=== PATIENT | male | born 1960 | race Caucasian/White ===

== ENCOUNTER 2022-05-01 18:20 | Inpatient (IN) | payer BC ==
[~2022-05-01 18:20] MED LIST: Iopamidol-370 76% 500 ML 1 ML ONE
[2022-05-01] MEDS ORDERED: Dexamethasone 4 mg/ml Vial ONE (18:57)
[2022-05-01] MEDS ORDERED: Magnesium 2 GM/50 ML BAG (IN WATER) ONE (18:57)
[2022-05-01 19:22] LABS: #Eosinphils 0.1 thou/uL (0.0-0.7); #Lymphocytes 1.1 thou/uL (1.20-3.40); #Monocytes 0.5 thou/uL (0.11-0.59); #Neutrophils 2.4 thou/uL (1.40-6.50); %Basophils 0.6 % (0.0-1.0); %Eosinophils 1.3 % (0.0-10.0); %Lymphocytes 27.2 % (21.0-51.0); %Monocytes 11.2 % (0.0-10.0); %Neutrophils 59.7 % (42.0-75.0); Hemoglobin 14.3 g/dL (14.0-18.0); Mean Corpuscular HGB CONC 35.1 g/dL (32.0-36.0); Mean Corpuscular Volume 94.3 fl (78.0-98.0); Mean Platelet Volume 7.1 fL (7.4-10.4); Platelet Count 212 thou/uL (130-400); RBC Distribution Width 11.2 % (11.5-14.5); Red Blood Cell (RBC) Count 4.34 mill/uL (4.70-6.10)
[2022-05-01 19:37] LABS: ALT (SGPT) 39 U/L (8-55); AST (SGOT) 33 U/L (5-34); Albumin 4.7 g/dL (3.5-5.0); Alkaline Phosphatase 41 U/L (40-110); Anion Gap 14 mmol/L (10-20); BUN (Urea Nitrogen) 18 mg/dL (8.4-25.7); Bilirubin, Total 0.9 mg/dL (0.2-1.2); CK (CPK) 97 U/L (30-200); Calc. Creatinine Clearance 0 mL/min (70-130); Calcium 9.1 mg/dL (7.8-10.44); Carbon Dioxide 25 mmol/L (22-29); Chloride 103 mmol/L (98-107); Estimated GFR 103; Glucose 107 mg/dL (70-105); Lipase 20 U/L (8-78); Potassium 3.7 mmol/L (3.5-5.1); Protein, Total 7.7 g/dL (6.0-8.3); Sodium 138 mmol/L (136-145)
[2022-05-01] MEDS ORDERED: Benzonatate 100 MG CAP PO PRN (19:42)
[2022-05-01] MEDS ORDERED: Albuterol 200 PUFF (6.7GM INHALER) INH PRN (19:42)
[2022-05-01] MEDS ORDERED: Labetalol HCl 100 MG/20 ML VIAL SLOW IVP PRN (20:11)
[2022-05-01] MEDS ORDERED: ALPRAZolam 0.25 MG TAB PO PRN (20:12)
[2022-05-01 20:23] LABS: Actual Bicarbonate (HCO3v) 28 mEq/L (22-28); Analyzer IN Cardio ER; Base Excess 2.7 mEq/L (-2.0 to +3.0); Calcium, Ionized (venous) 1.09 mmol/L (1.16-1.32); Chloride (VBG) 101 mmol/L (98-106); Hemoglobin (Hb) 14.9 g/dL (13.1-17.2); Potassium (VBG) 3.89 mmol/L (3.70-5.30); Sodium 134.9 mmol/L (133-146); pH (venous) 7.43 (7.32-7.43)
[2022-05-01] MEDS ORDERED: Electrolyte Replacement Protocol 1 EACH FS SCH (20:30)
[2022-05-01 20:42] LABS: Lactic Acid 1.1 mmol/L (0.5-2.2)
[2022-05-01] MEDS: Famotidine 20 MG TAB PO SCH (21:00)
[2022-05-01 22:12] LABS: SARS-CoV-2 NAA Rapid Test DETECTED (NotDetected)
[2022-05-01] MEDS: Lactated Ringer's 1,000 ML IV SCH (23:17)
[2022-05-01] MEDS: Azithromycin 500 MG in Sodium Chloride 0.9% 250 ML 250 ML IVPB SCH (23:43)
[2022-05-02 00:38] VITALS: BMI 29.3
[2022-05-02] MEDS: cefTRIAXone\\ROCEPHIN 2 GM in Sodium Chloride 0.9% 100 ML IVPB SCH ×2 (01:00→21:02)
[2022-05-02] MEDS ORDERED: Ipratropium Oral Inhaler INH SCH (01:00)
[2022-05-02] MEDS ORDERED: busPIRone HCl 5 MG TAB PO PRN ×2 (03:23→03:24)
[2022-05-02 04:07] LABS: #Lymphocytes 0.7 thou/uL (1.20-3.40); #Monocytes 0.1 thou/uL (0.11-0.59); #Neutrophils 3.8 thou/uL (1.40-6.50); %Eosinophils 0.2 % (0.0-10.0); %Lymphocytes 15.8 % (21.0-51.0); %Monocytes 2.1 % (0.0-10.0); Hemoglobin 14.5 g/dL (14.0-18.0); Mean Corpuscular HGB CONC 34.4 g/dL (32.0-36.0); Mean Corpuscular Hemoglobin 32.7 pg (27.0-31.0); Mean Corpuscular Volume 94.8 fl (78.0-98.0); Mean Platelet Volume 6.9 fL (7.4-10.4); Platelet Count 238 thou/uL (130-400); RBC Distribution Width 11.4 % (11.5-14.5); Red Blood Cell (RBC) Count 4.45 mill/uL (4.70-6.10); White Blood Cell (WBC) Count 4.7 thou/uL (4.8-10.8)
[2022-05-02 04:33] LABS: ALT (SGPT) 36 U/L (8-55); AST (SGOT) 25 U/L (5-34); Albumin 4.6 g/dL (3.5-5.0); Alkaline Phosphatase 45 U/L (40-110); Anion Gap 16 mmol/L (10-20); BUN (Urea Nitrogen) 16 mg/dL (8.4-25.7); Bilirubin, Direct 0.3 mg/dL (0.1-0.3); Bilirubin, Total 0.8 mg/dL (0.2-1.2); Calc. Creatinine Clearance 128 mL/min (70-130); Calcium 9.3 mg/dL (7.8-10.44); Carbon Dioxide 22 mmol/L (22-29); Chloride 104 mmol/L (98-107); Estimated GFR 103; Glucose 159 mg/dL (70-105); Potassium 4.5 mmol/L (3.5-5.1); Protein, Total 7.6 g/dL (6.0-8.3); Sodium 137 mmol/L (136-145)
[2022-05-02] MEDS: Mometasone/Formoterol 60 PUFF AER INH SCH ×2 (07:01→19:26)
[2022-05-02] MEDS: Ipratropium Oral Inhaler INH SCH ×4 (07:02→19:25)
[2022-05-02] MEDS: Famotidine 20 MG TAB PO SCH ×2 (08:45→21:02)
[2022-05-02] MEDS: Ascorbic Acid 500 mg Chewable Tablet PO SCH (08:45)
[2022-05-02] MEDS: Acetaminophen 325 MG TAB PO PRN ×3 (08:48→20:00)
[2022-05-02] MEDS: Enoxaparin Sodium 40 MG/0.4 ML SYRINGE SC SCH (08:50)
[2022-05-02] MEDS: Zinc Sulfate 220 MG CAP PO SCH (08:51)
[2022-05-02] MEDS: Cholecalciferol (Vitamin D3) 400 UNITS TAB PO SCH (08:51)
[2022-05-02] MEDS: Dexamethasone 4 mg/ml Vial SLOW IVP SCH (12:20)
[2022-05-02] MEDS ORDERED: Dexamethasone 10 MG/ML VIAL SLOW IVP SCH (18:00)
[2022-05-02] MEDS ORDERED: Amlodipine 5 MG TAB PO SCH (18:00)
[2022-05-02] MEDS: Lactated Ringer's 1,000 ML IV SCH (18:18)
[2022-05-02] MEDS: ALPRAZolam 0.25 MG TAB PO PRN ×2 (18:27→21:02)
[2022-05-02] MEDS: Azithromycin 500 MG in Sodium Chloride 0.9% 250 ML 250 ML IVPB SCH (20:00)
[2022-05-02] MEDS: Loratadine 10 MG TAB PO SCH (20:00)
[2022-05-02] MEDS: Lisinopril 20 MG TAB PO SCH (20:01)
[2022-05-02] MEDS: Atorvastatin Calcium 40 MG TAB PO SCH (20:01)
[2022-05-02] MEDS: Amlodipine 5 MG TAB PO SCH (20:01)
[2022-05-03] MEDS: busPIRone HCl 5 MG TAB PO PRN ×2 (02:39→17:45)
[2022-05-03 04:34] LABS: ALT (SGPT) 26 U/L (8-55); AST (SGOT) 14 U/L (5-34); Albumin 4.2 g/dL (3.5-5.0); Alkaline Phosphatase 36 U/L (40-110); Bilirubin, Direct 0.2 mg/dL (0.1-0.3); Bilirubin, Total 0.6 mg/dL (0.2-1.2); Protein, Total 6.9 g/dL (6.0-8.3)
[2022-05-03] MEDS: Mometasone/Formoterol 60 PUFF AER INH SCH ×2 (07:25→18:56)
[2022-05-03] MEDS: Ipratropium Oral Inhaler INH SCH ×4 (07:25→18:56)
[2022-05-03] MEDS: Ascorbic Acid 500 mg Chewable Tablet PO SCH (08:36)
[2022-05-03] MEDS: Enoxaparin Sodium 40 MG/0.4 ML SYRINGE SC SCH (08:36)
[2022-05-03] MEDS: Zinc Sulfate 220 MG CAP PO SCH (08:37)
[2022-05-03] MEDS: ALPRAZolam 0.25 MG TAB PO PRN ×4 (08:37→21:21)
[2022-05-03] MEDS: Famotidine 20 MG TAB PO SCH ×2 (08:37→20:21)
[2022-05-03] MEDS: Cholecalciferol (Vitamin D3) 400 UNITS TAB PO SCH (08:40)
[2022-05-03] MEDS: Dexamethasone 4 mg/ml Vial SLOW IVP SCH (11:24)
[2022-05-03] MEDS: Amlodipine 5 MG TAB PO SCH (20:16)
[2022-05-03] MEDS: Atorvastatin Calcium 40 MG TAB PO SCH (20:17)
[2022-05-03] MEDS: Azithromycin 500 MG in Sodium Chloride 0.9% 250 ML 250 ML IVPB SCH (20:18)
[2022-05-03] MEDS: Lisinopril 20 MG TAB PO SCH (20:20)
[2022-05-03 20:21] VITALS: BP 148/81
[2022-05-03] MEDS: Loratadine 10 MG TAB PO SCH (20:21)
[2022-05-03] MEDS: cefTRIAXone\\ROCEPHIN 2 GM in Sodium Chloride 0.9% 100 ML IVPB SCH (21:41)
[2022-05-04 04:37] LABS: ALT (SGPT) 23 U/L (8-55); AST (SGOT) 12 U/L (5-34); Albumin 4.1 g/dL (3.5-5.0); Alkaline Phosphatase 34 U/L (40-110); Bilirubin, Direct 0.2 mg/dL (0.1-0.3); Bilirubin, Total 0.4 mg/dL (0.2-1.2); Protein, Total 6.6 g/dL (6.0-8.3)
[2022-05-04] MEDS: busPIRone HCl 5 MG TAB PO PRN (05:36)
[2022-05-04] MEDS: Mometasone/Formoterol 60 PUFF AER INH SCH (06:57)
[2022-05-04] MEDS: Ipratropium Oral Inhaler INH SCH (06:57)
[2022-05-04] MEDS: ALPRAZolam 0.25 MG TAB PO PRN ×2 (08:31→14:08)
[2022-05-04] MEDS: Enoxaparin Sodium 40 MG/0.4 ML SYRINGE SC SCH (08:31)
[2022-05-04] MEDS: Cholecalciferol (Vitamin D3) 400 UNITS TAB PO SCH (08:32)
[2022-05-04] MEDS: Famotidine 20 MG TAB PO SCH (08:32)
[2022-05-04] MEDS: Ascorbic Acid 500 mg Chewable Tablet PO SCH (08:32)
[2022-05-04] MEDS: Zinc Sulfate 220 MG CAP PO SCH (08:32)
[2022-05-04] MEDS: Acetaminophen 325 MG TAB PO PRN (10:15)
[2022-05-04] MEDS ORDERED: busPIRone HCl 5 MG TAB PO SCH (10:30)
[2022-05-04] MEDS: Dexamethasone 4 mg/ml Vial SLOW IVP SCH (11:29)
[2022-05-04 12:16] VITALS: TEMP 98.4
== END 2022-05-04 14:51 | disposition home or self-care (01) | DRG 880 ==
LOC: ERS 18:20 → CCU 19:55
PROVIDERS: ADMIT Internal Medicine; ATTEND Internal Medicine
PROC: 8E0ZXY6 Isolation (ICD-10-PCS; principal; 2022-05-01)
DX: F41.9 Anxiety disorder, unspecified (principal); U07.1 COVID-19; J30.2 Other seasonal allergic rhinitis; I10 Essential (primary) hypertension; R06.03 Acute respiratory distress; Z88.8 Allergy status to other drugs, medicaments and biological substances; Z82.49 Family history of ischemic heart disease and other diseases of the circulatory system; Z79.899 Other long term (current) drug therapy; Z91.14 Patient's other noncompliance with medication regimen
CPT/HCPCS: 36415; 36416; 71275; 80048; 80053; 80076; 82550; 82805; 83605; 83690; 83880; 84145; 84443; 84484; 85025; 85379; 85610; 86140; 87040; 93005; 94640; 96361; 96365; 96375; J0456; J0696; J1100; J1650; J3475; J3490; J7050; J7120; J7620; Q9967

== ENCOUNTER 2024-03-22 13:59 | Outpatient (CLI) | payer BC | END 2024-03-22 14:00 | disposition home or self-care (01) | LOC: BICULT 13:59 | PROVIDERS: ATTEND Family Medicine | DX: E87.5 Hyperkalemia (principal) | CPT/HCPCS: 76770 ==